=== PATIENT | male | born 1950 | race African-American/Black ===

== ENCOUNTER 2019-05-09 13:10 | Emergency (ER) | payer MEDICARE, OTHER ==
[~2019-05-09] VITALS: Ht 175.3 cm; Wt 98.7 kg
[~2019-05-09 13:10] MED LIST: AMLO1TAB97 PO; PNV#1COM7 PO; TAMS0.4C2 PO
--- NOTE | 2019-05-09 13:56 | RAD ---
CERVICAL SPINE 2-3V History: Trauma Comparison: November 14, 2008 Findings: 3 views of the cervical spine are submitted. Cervical vertebral body stature is similar. There is again very minimal posterior subluxation C3 relative to C4, negligible anterior spondylolisthesis C6-7. There is multilevel cervical facet degenerative change. There is likely atherosclerotic calcification of the carotid arteries in the neck bilaterally. There is adequate alignment of the lateral masses of C1 relative to C2. Occipital condylar-C1 articulation is obscured by overlying bone on the odontoid view, also dens partially obscured on the odontoid view. There is larger circumscribed ossific body posterior to the C5-6 spinous processes, no donor site identified. Prevertebral soft tissue distance is similar. There is moderate to severe degenerative disc disease C3-4 and to lesser degree at C4-5 to C6-7 with spondylosis at the same levels. Impression: 1. No displaced acute cervical spine fracture is identified by radiographs although CT would be more sensitive for nondisplaced fracture if of clinical concern. 2. There is multilevel cervical degenerative disc disease and spondylosis. There is mild abnormal alignment as stated, multilevel cervical facet degenerative change. Electronically signed by: Devang Orellana MD (05/09/2019 1:53 PM) [facility]
[2019-05-09] MEDS ORDERED: TRAM50TA PO (14:03)
[2019-05-09] MEDS ORDERED: CYCL-331 PO (14:03)
[2019-05-09 14:15] VITALS: BP 131/75
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
== END 2019-05-09 14:20 | disposition home or self-care (01) ==
LOC: ER 13:10
DX: S13.4XXA Sprain of ligaments of cervical spine, initial encounter (principal); S00.01XA Abrasion of scalp, initial encounter; I10 Essential (primary) hypertension; Z87.891 Personal history of nicotine dependence; Z88.5 Allergy status to narcotic agent; Z88.8 Allergy status to other drugs, medicaments and biological substances; V89.2XXA Person injured in unspecified motor-vehicle accident, traffic, initial encounter; Y93.I9 Activity, other involving external motion; Y92.89 Other specified places as the place of occurrence of the external cause; Y99.8 Other external cause status
CPT/HCPCS: 72040; 99284

== ENCOUNTER → 2020-07-24 | Outpatient (CLI) | payer OTHER, MEDICARE ==
[~2020-07-24] MED LIST changes: +CYCL-331 PO; +TRAM50TA PO
--- NOTE | 2020-07-24 14:01 | CARD ---
MR#: [id number] Date of Study: 07/24/2020 Ordering Physician: ELVIA SHOEMAKER, Referring Physician: ELVIA SHOEMAKER, Tech: Tamiko Fitzpatrick, [facility] APPROVED REPORT EXAM: Two-dimensional and M-mode echocardiogram with Doppler and color Doppler. Other Information Quality : AverageHR: 61bpm INDICATION Dyspnea RISK FACTORS Hypertension 2D DIMENSIONS Left Atrium(2D)3.3 (1.6-4.0cm)IVSd1.0 (0.7-1.1cm) Aortic Root(2D)3.0 (2.0-3.7cm)LVDd4.8 (3.9-5.9cm) LVOT Diameter2.0 (1.8-2.4cm)PWd1.1 (0.7-1.1cm) LVDs3.3 (2.5-4.0cm)FS (%) 30.8 % SV63.9 mlLVEF(%)58.3 (>50%) Aortic Valve AoV Peak Perfecto.119.8cm/sAoV VTI25.8cm AO Peak GR.5.7mmHgLVOT Peak Perfecto.98.8cm/s LVOT VTI 23.70cmAO Mean GR.3mmHg RNACHO (VMAX)2.21qy4IFF (VTI)2.76cm2 Mitral Valve MV E Qdwaazkb18.3cm/sMV DECEL [id number] MV A Mltmeuoz42.6cm/sE/A Ratio1.3 Pulmonary Valve PV Peak Fanxveii10.6cm/sPV Peak Grad.3mmHg Tricuspid Valve TR P. Zzjqhbhw881vd/sRAP ZLVDPYUW2rjWm TR Peak Gr.24dvJkPUYB28psOo Pulmonary Vein S1 Qywlxvrf24.5cm/sD2 Fvhrxydu87.2cm/s LEFT VENTRICLE The left ventricle is normal size. There is borderline concentric left ventricular hypertrophy. The l eft ventricular systolic function is normal. The Ejection Fraction is 55-60%. There is normal LV segm ental wall motion. Transmitral Doppler flow pattern is Grade II-pseudonormal filling dynamics. RIGHT VENTRICLE The right ventricle is borderline dilated. There is normal right ventricular wall thickness. The righ t ventricular systolic function is normal. ATRIA The left atrium size is normal. The right atrium size is normal. The interatrial septum is intact wit h no evidence for an atrial septal defect or patent foramen ovale as noted on 2-D or Doppler imaging. AORTIC VALVE The aortic valve is normal in structure and function. Doppler and Color Flow revealed no significant aortic regurgitation. There is no significant aortic valvular stenosis. Calculated aortic valve area is 2.7 cm2 with maximum pressure gradient of 6 mmHg and mean pressure gradient of 3 mmHg. MITRAL VALVE The mitral valve is normal in structure and function. There is no evidence of mitral valve prolapse. There is no mitral valve stenosis. Doppler and Color Flow revealed no mitral valve regurgitation note d. TRICUSPID VALVE The tricuspid valve is normal in structure and function. Doppler and Color Flow revealed trace tricus pid regurgitation with an estimated PAP of 24 mmHg. There is no tricuspid valve stenosis. PULMONIC VALVE The pulmonic valve is not well visualized. Doppler and Color Flow revealed trace pulmonic valvular re gurgitation. GREAT VESSELS The aortic root is normal in size. The IVC is normal in size and collapses >50% with inspiration. PERICARDIAL EFFUSION There is no evidence of significant pericardial effusion. Critical Notification Critical Value: No <Conclusion> The left ventricular systolic function is normal. The Ejection Fraction is 55-60%. There is normal LV segmental wall motion. Trace tricuspid regurgitation with an estimated PAP of 24 mmHg. There is no evidence of significant pericardial effusion. Signed by : Luis A Pichardo, Electronically Approved : 07/24/2020 14:00:36
== END ==
LOC: ECHO 08:46
PROVIDERS: ATTEND Internal Medicine Cardiovascular Disease
DX: R06.09 Other forms of dyspnea (principal)
CPT/HCPCS: 93306

== ENCOUNTER → 2020-08-09 | Outpatient (CLI) | payer OTHER, MEDICARE ==
[~2020-08-09] MED LIST changes: +REGADENOSON 0.4 MG/5 ML DISP.SYRIN. IV ONE
--- NOTE | 2020-08-09 13:37 | RAD ---
MR#: [id number] Date of Study: 08/09/2020 Ordering Physician: ELVIA NOBLES, Referring Physician: ELVIA NOBLES, Tech: Shelly Davalos RVT,[facility] APPROVED REPORT Patient Location: OUT-PATIENT Indications AAA Blackwood scale images of the abdominal aorta demonstrates mild diffuse plaque. No focal aneurysm is noted with dimensions as noted above. Mildly elevated distal abdominal aortic velocities. Risk Factors Hypertension Smoking Duplex Results A/PTransverseLongitudinal Proximal Aorta 1.9cm2.3cm Mid Aorta 1.7cm2.4cm Distal Aorta 2.0cm1.9cm Rt. Common Iliac Artery1.1cm1.5cm Doppler VelocityWaveform Proximal Aorta 83.0 cm/sec Aorta Mid. 90.0 cm/sec Distal Aorta 196.0 cm/sec Rt. Common Iliac Ursdyj564.0 cm/sec Critical Notification Critical Value: No <Conclusion> 1. No evidence of AAA. Signed by : Elvia Nobles, Electronically Approved : 08/09/2020 13:36:50
--- NOTE | 2020-08-09 13:58 | RAD ---
MR#: [id number] Date of Study: 08/09/2020 Ordering Physician: ELVIA NOBLES, Referring Physician: GERRI SMART Tech: RT Carmela (R) (N) APPROVED REPORT Test Type: Pharmacological Stress Nurse/Tech: Hira AMCK / Bebeto VELASQUEZ Test Indications: D.O.E. Cardiac History: No known cardiac Resting Heart Rate: 68 bpm Resting Blood Pressure: 169/71mmHg Pretest Chest Pain: None Pharm. Details Pharmacologic stress testing was performed using 0.4mg per 5ml of regadenoson given intravenously ove r 7-10 seconds. Stress Symptoms DYSPNEA, NAUSEA, HEADACHE, DIZZINESS POST EXERCISE Reason for Termination: Infusion complete Max Blood Pressure: 178/78/mmHg Blood Pressure response to exercise: Normal blood pressure response during stress. Heart Rate response to exercise: INCREASED Chest Pain: No. Arrhythmia: No. ST Change: No. INTERPRETATION Stress EKG Conclusion: No evidence of stress induced EKG changes. Imaging Protocol IMAGE PROTOCOL: Rest Tc-99m/stress Tc-99m 1 day Rest: Stress: Viability: Radiopharm.Tc99m CdkcbznehTv02r Sestamibi Znha02fVo 33mCi Duration 15min. 15min. Img Date 08/09/2020 08/09/2020 Inj-Img Hpix41pzi. 60min. Rest Admin Site:IV - Right AntecubitalAdministrator: RT Carmela (R)(N) Stress Admin Site: IV - Right AntecubitalAdministrator: RT Carmela (R)(N) STRESS DATA End Diast. Vol.106.0mlAv. Heart Rate70.0bpm End Syst. Vol.37.0mlCO Index BSA0.0L/min Myocardial Jboz324.0gEject. Nmmwolsl12.0% Stress Rates Pk. Fill Rate2.74EDV/secLVtime Pk. Fill 139.94msec Pk. Empty Rate3.37ESV/secLVtime Pk. Xuorx997.53msec 05/27 Pk. Fill1.77EDV/sec Stress Scores Regional WT1.00Summed WT9.00 Regional WM0.00Summed WM1.00 LV Perfusion There is a large sized FIXED inferior wall defect suggestive of prior infarct versus artifact. Wall Motion Normal wall motion. EF 65% LV Perf. Quant 17 Seg. SSS7.00 17 Seg. SRS12.00 17 Seg. SDS0.00 Stress Defect Extent (% LAD)0.00Rest Defect Extent (% LAD)1.30Rev. Defect Extent (% LAD)0.00 Stress Defect Extent (% LCX) 18.80Rest Defect Extent (% LCX)25.00Rev. Defect Extent (% LCX)0.00 Stress Defect Extent (% RCA)24.40Rest Defect Extent (% RCA)48.90Rev. Defect Extent (% RCA)0.00 Stress Defect Extent (% NAM)11.70Rest Defect Extent (% NAM)21.70Rev. Defect Extent (% NAM)0.00 Other Information Quality:Average Risk Assessment: Moderate Risk Conclusion 1. No evidence of stress induced EKG changes. 2. Large FIXED inferior wall perfusion defect suggestive of prior infarct versus artifact due to subd iaphragmatic attenuation. 3. Normal EF at > 65% 4. Moderate risk study Signed by : Elvia Nobles, Electronically Approved : 08/09/2020 13:57:47
--- NOTE | 2020-08-09 16:05 | RAD ---
MR#: [id number] Date of Study: 08/09/2020 Ordering Physician: ELVIA NOBLES, Referring Physician: ELVIA NOBLES, Tech: Shelly Davalos RVT,[facility] APPROVED REPORT Patient Location: OUT-PATIENT Indications Renal Artery Stenosis Grayscale images of the bilateral kidneys are grossly unremarkable. There is a incidental left renal cyst noted measuring approximately 1.9 x 1.9 cm. On limited images this appears to be a simple cyst . Spectral waveforms and color Doppler of the bilateral proximal, mid and distal renal arteries are grossly unremarkable. Normal renal to aortic ratios. No significant renal artery stenosis identifie d. Risk Factors Hypertension Smoking Renal Artery Doppler Right Renal Artery Left Renal Arter y Proximal 141.0/32.0 cm/secProximal 81.0/24.0 cm/sec Mid 96.0/24.0 cm/secMid 98.0/24.0 cm/sec Distal 123.0/27.0 cm/secDistal 102.0/22.0 cm/sec Renal/Aorta Ratio 2.00Renal/Aorta Ratio 1.50 Prox. Resistive Index 0.8Prox. Resistive Index 0.8 Mid Resistive Index 0.8Mid Resistive Index 0.8 Distal Resistive Index 0.8Distal Resistive Index 0.8 Aortic Doppler VelocityWaveform Aorta Mid. 70.0 cm/sec Critical Notification Critical Value: No <Conclusion> 1. No significant renal artery stenosis identified on this current study. Signed by : Elvia Nobles, Electronically Approved : 08/09/2020 16:05:02
== END ==
LOC: NM 07:54
PROVIDERS: ATTEND Internal Medicine Cardiovascular Disease
DX: I70.1 Atherosclerosis of renal artery (principal); I10 Essential (primary) hypertension; Z72.0 Tobacco use
CPT/HCPCS: 76770; 78452; 93017; 93975; A9500; J2785